=== PATIENT | female | born 1965 | race Caucasian/White ===

== ENCOUNTER 2024-07-22 06:51 | Day surgery (SDC) | payer OTHER ==
[2024-07-16 12:51] VITALS: BMI 30.2
[2024-07-22] MEDS ORDERED: MIDAZOLAM HCL 2 MG/2 ML SINGLE DOSE VIAL ONE (07:21)
[2024-07-22] MEDS ORDERED: PROPOFOL 20 ML ONE ×2 (07:21→09:08)
[2024-07-22] MEDS ORDERED: DEXMEDETOMIDINE HCL 200 MCG/2 ML IVPB ONE (07:26)
[2024-07-22] MEDS ORDERED: LIDOCAINE HCL 1%, 10 MG/ML (20ML VIAL) ONE (07:43)
[2024-07-22] MEDS ORDERED: EPINEPHrine 1:1,000 1,000 MCG/ML ML ONE (07:44)
[2024-07-22] MEDS ORDERED: ROCURONIUM BROMIDE 50 MG/5 ML SYRINGE ONE (08:27)
[2024-07-22] MEDS ORDERED: NEOSTIGMINE METHYLSULFATE 0.5 MG/1 ML - 10 ML MDV ONE (09:05)
[2024-07-22] MEDS ORDERED: oxyCODONE HCL 5 MG TABLET PO PRN (09:32)
[2024-07-22] MEDS ORDERED: LACTATED RINGERS SOLUTION 1,000 ML IV SCH (09:45)
[2024-07-22] MEDS: ACETAMINOPHEN 1000 MG/100 ML BAG IVPB ONE (09:57)
[2024-07-22] MEDS ORDERED: oxyCODONE HCL 5 MG TABLET ONE (11:43)
[2024-07-22 13:33] VITALS: BP 107/66; PULSE 54; RESP 17; TEMP 96.6
== END 2024-07-22 12:30 | disposition home or self-care (01) ==
LOC: FASUSAT 06:51
PROVIDERS: ATTEND Student in an Organized Health Care Education/Training Program
PROC: 0SBC4ZZ Excision of Right Knee Joint, Percutaneous Endoscopic Approach (ICD-10-PCS; principal; 2024-07-22 08:50)
DX: S83.241A Other tear of medial meniscus, current injury, right knee, initial encounter (principal); M17.11 Unilateral primary osteoarthritis, right knee; X58.XXXA Exposure to other specified factors, initial encounter; Y92.9 Unspecified place or not applicable; Y93.9 Activity, unspecified
CPT/HCPCS: 94760